=== PATIENT | female | born 1950 | race Caucasian/White ===

== ENCOUNTER 2017-12-15 19:27 | Emergency (ER) | payer MEDICARE, MEDICAID ==
[~2017-12-15] VITALS: Ht 167.6 cm; Wt 75.0 kg
[~2017-12-15 19:27] MED LIST: GABA600T2 PO; MORP10CA11 PO; OMEP40CA37 PO; ONDA4TAB12 PO; TOPI25TA15 PO
[2017-12-15] MEDS ORDERED: metoclopramide 5 mg/ml inj IV ONE (20:15)
[2017-12-15] MEDS ORDERED: normal saline 1000ml 1,000 ML IV ONE (20:15)
[2017-12-15] MEDS ORDERED: diphenhydrAMINE 50 mg/ml inj IV ONE (20:15)
[2017-12-15] MEDS ORDERED: ketorolac trometh. 30mg/ml inj. IV ONE (20:15)
[2017-12-15] MEDS ORDERED: METO-292 PO (21:26)
[2017-12-15] MEDS ORDERED: DIPH-423 PO (21:26)
[2017-12-15] MEDS ORDERED: IBUP-1986 PO (21:26)
[2017-12-15 21:36] VITALS: BP 105/64
== END 2017-12-15 21:45 | disposition home or self-care (01) ==
LOC: ER 19:28
DX: G43.909 Migraine, unspecified, not intractable, without status migrainosus (principal); G89.29 Other chronic pain; F12.90 Cannabis use, unspecified, uncomplicated; Z88.8 Allergy status to other drugs, medicaments and biological substances; Z79.899 Other long term (current) drug therapy
CPT/HCPCS: 96374; 96375; 99284; J1200; J1885; J2765; J7030

== ENCOUNTER 2018-02-17 14:51 | Emergency (ER) | payer MEDICARE, MEDICAID ==
[~2018-02-17] VITALS: Ht 170.2 cm; Wt 78.0 kg
[~2018-02-17 14:51] MED LIST changes: +DIPH-423 PO; +IBUP-1986 PO; +METO-292 PO
[2018-02-17 16:34] VITALS: BP 152/103
[2018-02-17] MEDS ORDERED: normal saline 1000ml 1,000 ML IV ONE (16:55)
[2018-02-17] MEDS ORDERED: proCHLORperazine 10 MG/2 ml inj IV ONE (16:55)
[2018-02-17] MEDS ORDERED: ketorolac tromethamine 15mg/ml inj. IV ONE (16:55)
[2018-02-17] MEDS ORDERED: diphenhydrAMINE 25mg capsule PO ONE (16:55)
[2018-02-17] MEDS ORDERED: LORazepam 2 mg/ml vial IV ONE (17:15)
== END 2018-02-17 18:29 | disposition home or self-care (01) ==
LOC: ER 14:52
DX: G43.909 Migraine, unspecified, not intractable, without status migrainosus (principal); M54.2 Cervicalgia; G89.29 Other chronic pain; F12.90 Cannabis use, unspecified, uncomplicated; Z98.890 Other specified postprocedural states; Z88.8 Allergy status to other drugs, medicaments and biological substances; Z79.899 Other long term (current) drug therapy
CPT/HCPCS: 96361; 96374; 96375; 99284; J0780; J1885; J2060; Q0163

== ENCOUNTER 2018-10-10 09:16 | Emergency (ER) | payer MEDICARE, MEDICAID ==
[~2018-10-10] VITALS: Ht 170.2 cm; Wt 78.0 kg
[~2018-10-10 09:16] MED LIST changes: +GABA600T13 PO; -GABA600T2 PO
[2018-10-10 09:37] VITALS: BP 155/112
[2018-10-10] MEDS ORDERED: NAPR-56 PO (10:28)
== END 2018-10-10 10:48 | disposition home or self-care (01) ==
LOC: ER 09:16
DX: S92.311A Displaced fracture of first metatarsal bone, right foot, initial encounter for closed fracture (principal); S90.02XA Contusion of left ankle, initial encounter; G43.909 Migraine, unspecified, not intractable, without status migrainosus; G89.29 Other chronic pain; F12.90 Cannabis use, unspecified, uncomplicated; Z88.8 Allergy status to other drugs, medicaments and biological substances; W10.9XXA Fall (on) (from) unspecified stairs and steps, initial encounter; Y93.89 Activity, other specified; Y92.89 Other specified places as the place of occurrence of the external cause; Y99.8 Other external cause status
CPT/HCPCS: 73610; 73630; 99284

== ENCOUNTER 2020-04-18 15:23 | Emergency (ER) | payer MEDICARE, MEDICAID ==
[~2020-04-18] VITALS: Ht 170.2 cm; Wt 84.1 kg
[~2020-04-18 15:23] MED LIST changes: +OMEP40CA13 PO; -OMEP40CA37 PO
[2020-04-18] MEDS ORDERED: proCHLORperazine 10 MG/2 ml inj IV ONE (15:50)
[2020-04-18] MEDS ORDERED: ketorolac trometh. 30mg/ml inj. IM ONE (15:50)
[2020-04-18] MEDS ORDERED: diphenhydrAMINE 25mg capsule PO ONE (15:50)
[2020-04-18] MEDS ORDERED: normal saline 1000ml 1,000 ML IV ONE (15:50)
[2020-04-18 18:00] VITALS: BP 99/68
== END 2020-04-18 19:00 | disposition home or self-care (01) ==
LOC: ER 15:24
DX: G43.909 Migraine, unspecified, not intractable, without status migrainosus (principal); I10 Essential (primary) hypertension; G89.29 Other chronic pain; F12.90 Cannabis use, unspecified, uncomplicated; Z88.8 Allergy status to other drugs, medicaments and biological substances; Z79.899 Other long term (current) drug therapy; Z88.6 Allergy status to analgesic agent
CPT/HCPCS: 96361; 96372; 96374; 99284; J0780; J1885; J7030; Q0163

== ENCOUNTER 2021-01-30 16:49 | Emergency (ER) | payer MEDICARE, MEDICAID ==
[~2021-01-30] VITALS: Ht 170.2 cm; Wt 72.7 kg
[~2021-01-30 16:49] MED LIST changes: -OMEP40CA13 PO; +OMEP40CA21 PO
[2021-01-30] MEDS ORDERED: ketorolac trometh. 30mg/ml inj. IV ONE (17:40)
[2021-01-30] MEDS ORDERED: diphenhydrAMINE 50 mg/ml inj IV ONE (17:40)
[2021-01-30] MEDS ORDERED: proCHLORperazine 10 MG/2 ml inj IV ONE (17:40)
[2021-01-30 19:28] VITALS: BP 143/99
== END 2021-01-30 19:30 | disposition home or self-care (01) ==
LOC: ER 16:50
DX: G43.909 Migraine, unspecified, not intractable, without status migrainosus (principal); M54.2 Cervicalgia; I10 Essential (primary) hypertension; G89.29 Other chronic pain; F12.90 Cannabis use, unspecified, uncomplicated; Z98.890 Other specified postprocedural states; Z88.8 Allergy status to other drugs, medicaments and biological substances; Z79.899 Other long term (current) drug therapy
CPT/HCPCS: 96374; 96375; 99284; J0780; J1200; J1885

== ENCOUNTER 2021-12-20 11:24 | Emergency (ER) | payer MEDICARE, MEDICAID ==
[~2021-12-20] VITALS: Ht 170.2 cm; Wt 69.5 kg
[2021-12-20 11:29] VITALS: BP 116/75
[2021-12-20] MEDS ORDERED: LIDOcaine 5% patch TP STA (12:56)
== END 2021-12-20 13:45 | disposition home or self-care (01) ==
LOC: ER 11:25
DX: T81.30XA Disruption of wound, unspecified, initial encounter (principal); G43.909 Migraine, unspecified, not intractable, without status migrainosus; I10 Essential (primary) hypertension; G89.29 Other chronic pain; M54.50 Low back pain, unspecified; F12.90 Cannabis use, unspecified, uncomplicated; Z88.8 Allergy status to other drugs, medicaments and biological substances
CPT/HCPCS: 99282; A6258

== ENCOUNTER 2022-01-19 12:44 | Emergency (ER) | payer MEDICARE, MEDICAID ==
[~2022-01-19] VITALS: Ht 170.2 cm; Wt 72.7 kg
[2022-01-19 12:48] VITALS: BP 154/91
[2022-01-19] MEDS ORDERED: ibuprofen tablet 400 MG TABLET PO ONE (14:35)
[2022-01-19 14:52] LABS: BASOPHILS % (AUTO) 0.6 % (0-1); EOSINOPHILS # (AUTO) 0.1 X10'3 (0-0.9); EOSINOPHILS % (AUTO) 2.9 % (0-6); HEMATOCRIT 31.2 % (35.0-45.0); HEMOGLOBIN 10.3 g/dl (12.0-16.0); LYMPHOCYTES # (AUTO) 1.5 X10'3 (1.1-4.8); LYMPHOCYTES % (AUTO) 36.4 % (21-51); MEAN CORPUSCULAR HEMOGLOBIN 26.2 PG (27.0-31.0); MEAN CORPUSCULAR VOLUME 79.4 FL (78-98); MEAN PLATELET VOLUME 7.1 FL (7.4-10.4); MONOCYTES # (AUTO) 0.4 X10'3 (0-0.9); MONOCYTES % (AUTO) 8.8 % (2-12); NEUTROPHILS # (AUTO) 2.1 X10'3 (1.8-7.7); NEUTROPHILS % (AUTO) 51.3 % (42-75); PLATELET COUNT 275 X10'3 (140-440); RED BLOOD COUNT 3.93 X10'6 (4.20-5.60); RED CELL DISTRIBUTION WIDTH 15.8 % (11.5-14.5); WHITE BLOOD COUNT 4.2 X10'3 (4.5-11.0)
[2022-01-19 15:08] LABS: ALANINE AMINOTRANSFERASE 16 U/L (12-78); ALBUMIN 3.4 G/DL (3.4-5.0); ALKALINE PHOSPHATASE 179 IU/L (46-116); ANION GAP 8 (8-16); ASPARTATE AMINO TRANSFERASE 16 U/L (10-37); BILIRUBIN,TOTAL 0.1 MG/DL (0.1-1.0); BLOOD UREA NITROGEN 12 MG/DL (7-18); BUN/CREATININE RATIO 13.8 (6.6-38.0); CALCIUM 9.1 MG/DL (8.5-10.1); CHLORIDE 103 MMOL/L (99-107); CREATININE 0.87 MG/DL (0.40-0.90); GLUCOSE 133 MG/DL (70-104); POTASSIUM 4.4 MMOL/L (3.5-5.1); SODIUM 139 MMOL/L (135-145); TOTAL CARBON DIOXIDE 28.3 MMOL/L (24-32); TOTAL PROTEIN 6.8 G/DL (6.4-8.2); eGFR 65 ML/MIN
[2022-01-19] MEDS ORDERED: iohexol 350MG/ML 100ml bottle IV ONE (15:09)
--- NOTE | 2022-01-19 15:57 | NUR ---
bed from [facility]
[2022-01-19] MEDS ORDERED: normal saline 1000ML IV soln IVB ONE (16:30)
[2022-01-19] MEDS ORDERED: SULF1TAB49 PO (17:22)
[2022-01-19] MEDS ORDERED: sulfamethoxazole/trimethoprim DS (800/160mg) tablet PO ONE (17:25)
[2022-01-19] MEDS ORDERED: SUMAtriptan 25 MG tablet PO ONE (17:40)
== END 2022-01-19 18:09 | disposition home or self-care (01) ==
LOC: ER 12:44
DX: T81.9XXA Unspecified complication of procedure, initial encounter (principal); G43.909 Migraine, unspecified, not intractable, without status migrainosus; I10 Essential (primary) hypertension; G89.29 Other chronic pain; M54.50 Low back pain, unspecified; F12.90 Cannabis use, unspecified, uncomplicated; Z88.8 Allergy status to other drugs, medicaments and biological substances
CPT/HCPCS: 36415; 70450; 72129; 80053; 83605; 85025; 87040; 99285; J3490; J7030; Q9967

== ENCOUNTER → 2023-08-24 | Outpatient (CLI) | payer MEDICARE, MEDICAID | END | disposition home or self-care (01) | LOC: RAD 09:22 | PROVIDERS: ATTEND Podiatrist Foot & Ankle Surgery | DX: S82.302D Unspecified fracture of lower end of left tibia, subsequent encounter for closed fracture with routine healing (principal); M19.072 Primary osteoarthritis, left ankle and foot; M79.672 Pain in left foot; M19.071 Primary osteoarthritis, right ankle and foot; M79.671 Pain in right foot; Z98.890 Other specified postprocedural states; X58.XXXD Exposure to other specified factors, subsequent encounter | CPT/HCPCS: 73700 ==